=== PATIENT | female | born 1985 | race Caucasian/White ===

== ENCOUNTER → 2022-04-12 | Outpatient (CLI) | payer OTHER, SELFPAY ==
--- NOTE | 2022-04-12 15:30 | MRI_ITS ---
INDICATION: neck pain/tingling EXAMINATION: MRI - MR Spine Cervical W/O Contrast TECHNIQUE: Multiplanar and multisequence MR images of the cervical spine were performed. IV Contrast Dosage and Agent: None. COMPARISON: None. FINDINGS: VERTEBRAE: Normal vertebral bodies and posterior elements. VERTEBRAL ALIGNMENT: Normal, including the craniocervical junction and cervicothoracic junction. No spondylolisthesis. There is preservation of the normal cervical lordosis. CERVICAL SPINAL CORD: Unremarkable in signal and morphology. C2/C3: Normal disc height and morphology. Normal spinal canal and neuroforamina. C3/C4: Normal disc height and morphology. Normal spinal canal and neuroforamina. C4/C5: Normal disc height and morphology. Normal spinal canal and neuroforamina. C5/C6: Normal disc height and morphology. Normal spinal canal and neuroforamina. C6/C7: Normal disc height and minor bulging of the disc.. Normal spinal canal and neuroforamina. C7/T1: Normal disc height and morphology. Normal spinal canal and neuroforamina. NECK SOFT TISSUES: No prevertebral soft tissue swelling. There is no cervical adenopathy. MRI/Spine Cervical (Routine) IMPRESSION: No evidence for acute fracture or significant bony pathology. Minor bulging of the disc at C6-7. No significant disc protrusions spinal stenosis or cord compression Electronically Signed: Suresh Watts MD at 17:02 EST ,
--- NOTE | 2022-04-12 15:30 | MRI_ITS ---
EXAM: MR LEFT UPPER EXTREMITY WITHOUT INTRAVENOUS CONTRAST, SHOULDER CLINICAL INDICATION: Pain in left shoulder w restriction/weakness TECHNIQUE: Multiplanar and multisequence MR images of the left shoulder without intravenous contrast. This report was created using [employer] report [employer] technology. COMPARISON: None. FINDINGS: TENDONS: SUPRASPINATUS: Unremarkable. Intact. INFRASPINATUS: Unremarkable. Intact. SUBSCAPULARIS: Unremarkable. Intact. TERES MINOR: Unremarkable. Intact. BICEPS BRACHII, LONG HEAD: Unremarkable. The extra-articular biceps tendon is in the bicipital groove. The intra-articular biceps tendon is normal. LIGAMENTS: GLENOHUMERAL: Unremarkable. Intact. MUSCLES: Unremarkable. No rotator cuff muscle atrophy. FLUID: Unremarkable. No joint effusion. No subacromial-subdeltoid space bursal fluid. CARTILAGE: Unremarkable. Articular cartilage intact. GLENOID LABRUM: Unremarkable. Intact, limited evaluation on non-arthrographic exam. BONES/JOINTS: Os acromiale there is present. No fracture. No abnormal bone marrow signal. OTHER SOFT TISSUES: Unremarkable. No rotator interval edema. MRI/Upper Ext Joint Only(Routine) IMPRESSION: 1. No rotator cuff or labral tear. 2. Presence of an os acromiale. 3. No other significant internal derangement. Electronically Signed: Aj Jarvis MD at 22:10 EST ,
== END | disposition home or self-care (01) ==
PROVIDERS: Referring Provider Chiropractor; Visit Provider Chiropractor
DX: M25.512 Pain in left shoulder (principal)
CPT/HCPCS: 72141; 73221

== ENCOUNTER 2022-05-27 10:00 | Outpatient (RCR) | payer OTHER, SELFPAY ==
--- NOTE | 2022-04-04 12:47 | HP.PTEVAL_ITS ---
Patient's Visit Information GUNJAN KAHN is a 36 year old F referred to Physical Therapy by Dr. 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 Date of Evaluation: 04/01/22 Physical Therapist: Zechariah Montiel DPT - Visit Plan Frequency: 2x /Week Duration: 6 Weeks Plan: PERFORM SUBSCAP RELEASE ON L SIDE, JOINT MOBS OF THORACIC SPINE, PROGRESS PT SCAPULAR STABILIZATION AND IMPROVE TISSUE ELASTICITY L UPPER TRAPS, SCALENES, SCM VIA STM WELL IMPROVE PRESSURE POINTS OF RHOMBOIDS VIA TRIGGER POINT RELEASE. PROGRESS SHOULDER ROM AND STRENGTH IN LUE - Subjective PT IS A 36 Y.O. FEMALE THAT PRESENTS WITH L SHOULDER/NECK PAIN. Pt IS A LABOR AND DELIVERY NURSE/CHEMICAL DEPENDENCY ATTENDANT AND 5 YEARS AGO PT WAS HOLDING A PT LEG FOR 4 HOURS AND THE NEXT DAY Pt. HAD SPASMS AND PAIN IN /THORACIC BACK THAT AFFECTED L SHOULDER. AFTER HAVING MRI AND EMG OF L ARM THAT WER NEGATIVE Pt PURSUED CONSERVATIVE TREATMENT. Pt HAS NOT HAD IMPROVEMENTS IN PAIN SINCE INCIDENT. Pt REPORTS HAVING PAIN EVERY DAY IN NECK, THORACIC AREA, AND L SHOULDER. Pt HAS HAD 3/10 PAIN DAILY IN L CERVICAL SPINE ALONG UPPER TRAP TO THROACIC PARASPINALS AND INTO MIDDLE AND INDEX FINGER OF L HAND. DENIES CONSTITUTIONAL SYMPTOMS. HOWEVER, PAIN DOES WORSEN AT NIGHT AND HAS MILD RELIEF SLEEPING WITH ARMS UNDER CHEST ON STOMACH. MUSCLE RELAXERS ARE NOT IMPROVING PAIN. Pt IS ABLE TO GET THROUGHT DAY OF BEING A CHEMICAL DEPENDENCY ATTENDANT BY KEEPING ARMS CLOSE TO BODY AND NOT EXERTING SELF TOO MUCH. HARD TO LIFT > 50LBS WITHOUT IMMENSE PAIN. TRIGGER POINT RELEASE CAN ASST IN PAIN ALLEVIATION. - Pain L SHOULDER/UT AREA Pain Intensity (Out of 10): 3 Pain Intensity Range: 3 - Objective OUTCOME MEASURE: DAMON. ROM: L SHOULER ABDUCTION 75, FLEXION 130, WNL FOR IR/ER. MMT. RUE: WNL. LUE: FLEXION 3+/5, ABDUCTION 3+/5 PAIN. ELBOW BILAT. FLEXION/EXTENSION 4/5. WRIST BILAT. EXT/FLEXION: 4/5. PALPATION: TENDERNESS AND KNOTS OF PARASPINALS OF L SIDE AND ALONG BICEPS/SUPRASPINATUS TENDON, PAIN IN L SCM AND SCALENES WELL UPPER TRAP. WITH PALPATION OF BICEPS AND SUPRASPINATUS Pt HAD PAIN RADIATE INTO JAW/NECK REGION. VERY PAINFUL SUBSCAPULARIS ON L. SEGMENTAL MOBILITY: HYPOMOBILE/PAINFUL C2-C4, T3-T8 - Special Tests L Shoulder Empty Can - SS: Negative L Shoulder Belly Press - SupScap: Positive L Shoulder Miller Venkat - Impingement: Positive L Shoulder Yeargasons - SLAP: Negative - Goals Goal 1:: Pt WILL SCORE <8 ON DAMON TO DEMO DECREASED PAIN WITH ADL'S Goal Time Frame: 4-6 Weeks Goal 2:: Pt WILL INCREASE L SHOULDER FLEXION/ABDUCTION TO WNL TO AID IN EASE OF ADL PERFORMANCE Goal Time Frame: 4-6 Weeks Goal 3:: Pt WILL IMPROVE LUE ABDUCTION/FLEXION STRENGTH TO 4+/5 TO AID IN COMPLETING WORK TASKS WITHOUT PAIN Goal Time Frame: 4-6 Weeks Goal 4:: Pt VERTEBRAL MOBILITY WILL BE NORMAL AND NON-PAINFUL TO IMPROVE MUSCLE SPASMS IN THORACIC SPINE AND DECREASE LIMITATIONS OF PAIN. Goal Time Frame: 4-6 Weeks Goal 5:: Pt L UPPER TRAP, SCM, LEVATOR TRAP, AND SCALENES WILL HAVE NORMAL FLEXIBILITY WITHOUT INCREASED TISSUE REISTANCE TO DECREASE PAIN WITH ADL'S. Goal Time Frame: 4-6 Weeks - Rehabilitation Potential Physical Therapy Diagnosis: Pt PRESENTS WITH DECREASED L SHOULDER ROM AND STRENGTH ALONG WITH NUMEROUS TRIGGER POINTS ALONG MEDIAL SCAPULA AND MEDIAL/LATERAL L SHOULDER. Pt HAS SIGNIFICANT TIGHTNESS OF L SUBSCAPULARIS AND HYPOMOBILITY OF THORACIC SPINE. BASED ON OBJECTIVE FINDINGS Pt IS APPROPRIATE FOR A MODERATE COMPLEXITY EVAL CODE. Rehabilitation Potential: Good - Anticipated Interventions Thank you for the opportunity to evaluate your patient. For Medicare and Medicare HMO plans, please review the plan of care and approve it. It will need to be FAXED BACK to us at [phone] for Medicare purposes. For Medicare only, by signing this I certify the plan of care. Please let me know if there are questions or concerns regarding this plan of care. Physician Signature: Date:
== END 2022-05-27 19:00 | disposition home or self-care (01) ==
LOC: PT 10:00
PROVIDERS: Visit Provider Chiropractor
DX: M41.9 Scoliosis, unspecified (principal); M99.01 Segmental and somatic dysfunction of cervical region; M99.02 Segmental and somatic dysfunction of thoracic region; M06.9 Rheumatoid arthritis, unspecified
CPT/HCPCS: 97110; 97140; 97162

== ENCOUNTER → 2022-11-02 | Outpatient (CLI) | payer OTHER, SELFPAY ==
[2022-11-02 09:22] LABS: Absolute Lymphocyte Count 4.87 X10^3/uL (0.83-4.51); Absolute Neutrophil Count 5.2 X10^3/uL (2.0-7.7); Basophil# 0.03 X10^3/uL; Basophil% 0.3 % (0-1); Eosinophil# 0.13 X10^3/uL; Eosinophils% 1.2 % (0-5); Hematocrit 45.1 % (37-47); Hemoglobin 14.2 g/dL (12.0-15.0); Lymphocyte # 4.87 X10^3/ul (0.83-4.51); Mean Corp Hgb Conc 31.5 g/dL (32-36); Mean Corpuscular Hgb 28.5 pg (27.0-32.0); Mean Corpuscular Volume 90.4 fL (81-99); Mean Platelet Vol. 10.7 fl (6.2-12.0); Monocyte# 0.77 X10^3/uL; Monocyte% 6.9 % (0-10); NRBC Flagged by Analyzer 0 % (0-5); Neutrophil # 5.22 X10^3/uL (2.7-7.7); Neutrophil % 47.1 % (47-70); Platelet Count 221 K/mm3 (150-450); RBC Distribution Width CV 13.6 % (11.6-14.6); RBC Distribution Width SD 45.3 fl (35.1-43.9); Red Blood Count 4.99 M/mm3 (4.2-5.4); White Blood Count 11.1 K/mm3 (4.4-11.0)
[2022-11-02 10:11] LABS: Hemoglobin A1c 5.4 % (3.8-5.6)
[2022-11-02 10:13] LABS: AST(SGOT) 13 U/L (15-37); Alanine Aminotransfer ALT/SGPT 27 U/L (13-56); Albumin, Serum 3.8 g/dL (3.2-5.0); Alkaline Phosphatase 32 U/L (45-117); Anion Gap 8 (5-15); BUN 14 mg/dL (7-18); BUN/Creat Ratio 14.5 RATIO (10-20); Calcium,Total 9.2 mg/dL (8.5-10.1); Chloride 106 mmol/L (98-107); Cholesterol 230 mg/dL (200); Creatinine, Serum 0.97 mg/dL (0.55-1.02); EST Glomerular Filtration Rate 69 mL/min (>60); Est Glom Filt Rate - Afr Amer 83 mL/min (>60); Globulin 3.7 g/dL (2.2-4.2); Glucose 95 mg/dL (74-106); High Density Lipoprotein 67 mg/dL; Potassium 4.2 mmol/L (3.5-5.1); Protein, Total 7.5 g/dL (6.4-8.2); Sodium Level 141 mmol/L (136-145); Thyroid Stim Hormone (TSH) 1.06 uIU/mL (0.358-3.74); Triglycerides 306 mg/dL; Very Low Density Lipoprotein 61 mg/dL (5-40)
[2022-11-04 12:09] LABS: Vitamin D 1,25-Dihydroxy 33.3 pg/mL (24.8-81.5)
== END | disposition home or self-care (01) ==
LOC: LAB 08:10
PROVIDERS: Referring Provider Obstetrics & Gynecology; Visit Provider Obstetrics & Gynecology
DX: Z13.21 Encounter for screening for nutritional disorder (principal); Z13.220 Encounter for screening for lipoid disorders; Z13.1 Encounter for screening for diabetes mellitus; Z13.29 Encounter for screening for other suspected endocrine disorder; R63.5 Abnormal weight gain; R53.83 Other fatigue
CPT/HCPCS: 36415; 80053; 80061; 82652; 83036; 84443; 85025

== ENCOUNTER → 2023-03-14 | Outpatient (CLI) | payer OTHER, SELFPAY ==
--- NOTE | 2023-03-14 08:56 | US_ITS ---
STUDY: ULTRASOUND BREAST - RIGHT REASON FOR EXAM: Female, 37 years old. Right breast lumps, discharge TECHNIQUE: Axial and longitudinal images of the RIGHT breast were performed with a high resolution ultrasound transducer. # OF IMAGES: 10 COMPARISON: None. FINDINGS: RIGHT Breast: Focused sonographic evaluation of the upper inner quadrant of the right breast performed. Dense fibroglandular tissue noted. There are multiple well-defined hypoechoic nonshadowing nonvascular nodules likely representing lymph nodes with the largest measuring 0.6 x 0.8 x 0.4 cm. No suspicious shadowing solid lesion, architectural distortion or clustered shadowing calcifications. US/Breast Limited Unilateral IMPRESSION: No suspicious sonographic findings, likely intramammary lymph nodes. Patient can return for screening mammogram in one year ASSESSMENT CATEGORY: BIRADS Category 2: Benign. A letter regarding these results will be sent to the patient by the facility within 30 days. Electronically Signed: Ramin Russell MD at 11:00 EST ,
--- NOTE | 2023-03-14 08:56 | BI_ITS ---
MAMMOGRAPHY - BILATERAL DIAGNOSTIC REASON FOR EXAM: Female, 37 years old. Breast pain/ nipple discharge PERTINENT HISTORY: Non-contributory. TECHNIQUE: Digital examination. Mediolateral oblique (MLO) and craniocaudad (CC) views of both breasts were obtained. CAD: CAD was performed on this study. COMPARISON: No comparison mammograms available at this time. If any prior films become available, an addendum to this report can be generated. FINDINGS: Breast Composition: The breasts are heterogeneously dense, which may obscure small masses. There are no dominant masses or suspicious calcifications. However, patient complains of a palpable lump in the right breast which needs further evaluation with ultrasound. No other significant abnormalities are identified. BI/DIAG MAMM W/CAD, BILAT IMPRESSION: Further ultrasonographic evaluation recommended, as described above. Recall Side: Right Breast ASSESSMENT CATEGORY: BIRADS Category 0: Incomplete. Need additional imaging evaluation. A letter regarding these results will be sent to the patient by the facility within 30 days. FOLLOW UP RECOMMENDATION: Ultrasound Recommended. (I) Approximately 10% of breast cancers are not detected by mammography. A normal mammogram should not delay biopsy of a clinically suspicious abnormality. Electronically Signed: Ramin Russell MD at 9:32 EST ,
== END | disposition home or self-care (01) ==
LOC: OPBI 08:54
PROVIDERS: Referring Provider Obstetrics & Gynecology; Visit Provider Obstetrics & Gynecology
DX: N64.52 Nipple discharge (principal); N64.4 Mastodynia
CPT/HCPCS: 76642; 77062; 77066; G0279

== ENCOUNTER 2024-08-22 20:07 | Emergency (ER) | payer OTHER, SELFPAY ==
[2024-08-22 20:08] VITALS: BP 156/103; PULSE 84; RESP 18; TEMP 36.1; O2SAT 100; BMI 25.5
[2024-08-22] MEDS: Lidocaine 1% (20 ml mdv) 20 ML Vial 10 ML INFILT (20:40)
--- NOTE | 2024-08-22 21:39 | EDS_ITS ---
HPI <LEIA Pierre - Last Filed: 08/22/24 21:46> History of Present Illness Chief Complaint: Laceration Narrative Narrative: Patient presenting today due to a laceration to the base of her right thumb that she sustained this evening. She was washing the dishes and thinks that she cut her finger on a butter knife. She believes that her tetanus is up-to-date. She is right-handed, she is not on any blood thinners. PFSH <LEIA Pierre - Last Filed: 08/22/24 21:46> PFS Home Medications ?Medication ?Instructions ?Recorded ?Last Taken ?Type acetaminophen-caffeine 500 mg-65 1 tab PO Q12H PRN 12/13 Unknown History mg tablet hydroxychloroquine 200 mg tablet 200 mg PO BID 2 Unknown History meloxicam 15 mg tablet 15 mg PO DAILY 03/01/22 Unkn own History ondansetron 8 mg disintegrating 8 mg PO Q8H #10 tabs 1 05/07/21 Unknown Rx tablet valacyclovir 500 mg tablet 500 mg PO BID 7 days #14 ta bs 05/25/22 Unknown Rx (Valtrex) ondansetron 8 mg disintegrating 8 mg PO Q8H PRN nausea and 08/03/22 Unknown Rx tablet vomiting #30 tabs sertraline 50 mg tablet (Zoloft) 50 mg PO DAILY #90 ta bs 01/17/23 Unknown Rx topiramate 50 mg tablet 50 mg PO BID #60 tabs Unknown Rx etonogestrel 0.12 mg-ethinyl 1 vag ring vaginal Q4W #3 ea 08/02/24 Unknown Rx estradiol 0.015 mg/24 hr vaginal ring (NuvaRing) Allergy/AdvReac Type Severity Reaction Status Date / Time moxifloxacin (From Avelox) Allergy Severe Anaphylaxis Verified 08/08/23 15:16 Penicillins Allergy Mild Rash Verified 08/22/24 20:07 Family History Other Autoimmune disorder Depression Heart disease Surgical History H/O knee surgery Social History current occupational status: employed Smoking Status: Never smoker alcohol intake: current alcohol intake frequency: a few times a month substance use type: does not use what type of physical activity do you participate in: walking frequency: 3-4 times per week ROS <LEIA Pierre - Last Filed: 08/22/24 21:46> ROS ED Constitutional Constitutional ED: Denies chills or fever(s) Musculoskeletal Musculoskeletal: Denies arthralgias Integumentary Reports laceration Hematologic/Lymphatic Hematologic/Lymphatic: Denies easy bleeding EXAM <LEIA Pierre - Last Filed: 08/22/24 21:46> Physical Exam Const Vital Signs: 08/22/24 20:08 Temperature 97 F L Temperature Source Temporal Pulse Rate 84 Respiratory Rate 18 Blood Pressure 156/103 H Blood Pressure Mean 120 Pulse Ox 100 Oxygen Delivery Method Room Air Positive well nourished, well developed and no apparent distress General Appearance ED: well developed HEENT Reports normocephalic and head/scalp atraumatic Mouth ED: Yes moist mucous membranes normal Eyes EOMs intact bilaterally Neck full ROM Resp normal respiratory effort and clear to auscultation bilaterally Cardio regular rate and regular rhythm Back/Spine normal ROM Extremity full ROM Extremity Narrative: 2.5 cm full-thickness linear laceration to the base of the right thumb across the palmar aspect. No obvious tendon laceration, patient has full flexion extension at the MCP and IP joints. Right radial pulse 2+, good cap refill, sensation intact. Neuro moves all extremities, no focal motor deficits and no sensory deficits noted Sensorium / Orientation: awake and alert Psych mental status grossly normal and thought process normal Skin Skin Narrative: Aside from laceration to the right thumb, no other obvious rashes or lesions noted <Dr. Tarik Villalobos MD - Last Filed: 08/22/24 22:39> Physical Exam Const Vital Signs: 08/22/24 20:08 Temperature 97 F L Temperature Source Temporal Pulse Rate 84 Respiratory Rate 18 Blood Pressure 156/103 H Blood Pressure Mean 120 Pulse Ox 100 Oxygen Delivery Method Room Air PROC <LEIA Pierre - Last Filed: 08/22/24 21:46> Procedures Lacerations Laceration: Length: 2.5 cm Depth: Sub Q Shape: Linear Prep: Chlorhexadine Laceration repair: Digital block, Irrigated, Lidocaine and Wound explored (After exploring the wound, I am unable to visualize the tendon, no obvious tendon laceration) Number of Sutures/Egnar: 6 Suture Information: Ethilon, Simple and 4-0 Comment: Wound copiously irrigated with saline and chlorhexidine after digital block. [facility] <LEIA Pierre - Last Filed: 08/22/24 21:46> [facility] Narrative Medical decision making narrative: Patient presenting today with a laceration to her right thumb that she sustained this evening while washing the dishes and cutting it on a butter knife. She is neurovascularly intact. She has full range of motion to her right thumb, no obvious tendon injury. This will require suture repair. She tolerated procedure well. After performing a digital block with 1% lidocaine, the wound was explored and I did not visualize the tendon. She is neurovascularly intact. Wound was then bandaged with bacitracin on it. She is to have sutures removed in 7 days. Wound care instructions were discussed with her. She will be discharged home in stable condition. <Dr. Tarik Villalobos MD - Last Filed: 08/22/24 22:39> [facility] Treatment and Re-Evaluation Narrative: I have personally performed a face to face assessment of the patient and have reviewed the LOBITO Note. I performed a substantive portion of the visit including all aspects of the following. My connor findings include: History is accidental laceration to right thumb while cleaning a butter knife. No loss of function or numbness. Exam is transverse 2.5 cm full-thickness laceration volar base right thumb. Tendon function intact. No tendons visible in the wound. Neurovascular intact distally. Medical Decison Making LEIA repaired I supervised the procedure note. The laceration is clean there is no suspicion of a foreign body or so I do not think she needs radiography. Tetanus is up-to-date. Other additions or changes: [None] Discharge Plan Triage Chief Complaint: Laceration ED Midlevel Provider: No Ayoub ED Provider: Tarik Villalobos Dx/Rx/DC Orders Clinical Impression: Finger laceration Instructions: ED Laceration, Hand: All Closures Prescriptions: No Action hydroxychloroquine 200 mg tablet 200 mg PO BID meloxicam 15 mg tablet 15 mg PO DAILY acetaminophen-caffeine 500-65 mg tablet 1 tab PO Q12H PRN ondansetron 8 mg tablet,disintegrating 8 mg PO Q8H Qty: 10 1RF valacyclovir [Valtrex] 500 mg tablet 500 mg PO BID 7 Days Qty: 14 4RF ondansetron 8 mg tablet,disintegrating 8 mg PO Q8H PRN (Reason: nausea and vomiting) Qty: 30 3RF sertraline [Zoloft] 50 mg tablet 50 mg PO DAILY Qty: 90 4RF topiramate 50 mg tablet 50 mg PO BID Qty: 60 12RF Rx Instructions: take before breakfast and before dinner etonogestrel-ethinyl estradiol [NuvaRing] 0.12-0.015 mg/24 hr ring 1 vag ring vaginal Q4W Qty: 3 2RF Rx Instructions: leave in place for 4 weeks and then change for continuous cycling Primary Care Provider: Jaskaran Nunez Referrals: Jaskaran Nunez, [employer] [Primary Care Provider] - 7 Days for suture removal Activity Restrictions/Additional Instructions: Follow-up with PCP to have sutures removed in 7 days, return for any signs of infection. Print Language: Chinese Disposition Disposition: Home, Self Care Discharge Date/Time: 08/22/24 21:29
== END 2024-08-22 21:29 | disposition home or self-care (01) ==
PROVIDERS: Emergency Provider Emergency Medicine; PCP Nurse Practitioner Family; Referring Provider Emergency Medicine; Visit Provider Emergency Medicine
DX: S61.011A Laceration without foreign body of right thumb without damage to nail, initial encounter (principal); W26.0XXA Contact with knife, initial encounter
CPT/HCPCS: 12001; 99282